=== PATIENT | male | born 1995 | race Caucasian/White ===

== ENCOUNTER 2018-02-09 18:23 | Emergency (ER) | payer OTHER ==
[~2018-02-09] VITALS: Ht 180.3 cm; Wt 79.4 kg
[2018-02-09 18:27] VITALS: TEMP 36.4; Ht 180.3 cm; Wt 79.4 kg
[2018-02-09] MEDS ORDERED: SODIUM CHLORIDE 0.9% 1000ML 1,000 ML IV STA (18:54)
[2018-02-09 19:10] VITALS: O2SAT 99
--- NOTE | 2018-02-09 19:26 | DIAGNOSTIC IMAGING REPORT ---
CHEST ONE VIEW PORTABLE CLINICAL HISTORY: CHEST PAIN dyspnea COMPARISON STUDY: No previous studies for comparison. FINDINGS: The bones soft tissues and hemidiaphragms are normal. The cardiomediastinal silhouette is normal. The lungs are clear. The pulmonary vasculature is normal. IMPRESSION: Negative chest. The above report was generated using voice recognition software. It may contain grammatical, syntax or spelling errors. Electronically signed by: Eugenio Fuchs M.D. 02/09/2018 7:24 PM Dictated Date/Time: 02/09/2018 7:24 PM
[2018-02-09 19:29] LABS: BASO % 0.4 %; BASO ABS # 0.02 K/uL (0-0.2); EOS % 0.9 %; EOS ABS # 0.05 K/uL (0-0.5); HEMATOCRIT 44.4 % (42-52); HEMOGLOBIN 15.4 g/dL (14.0-18.0); LYMPH % 29.8 %; LYMPH ABS # 1.65 K/uL (1.2-3.4); MEAN CELL VOLUME 84.4 fL (80-100); MEAN CORPUSCULAR HEMOGLOBIN 29.3 pg (25-34); MEAN CORPUSCULAR HGB CONC 34.7 g/dl (32-36); MEAN PLATELET VOLUME 10.1 fL (7.4-10.4); NEUT % 59.9 %; NEUT ABS # 3.31 K/uL (1.4-6.5); PLATELET COUNT 300 K/uL (130-400); RED CELL DISTRIBUTION WIDTH SD 39.4 fL (36.4-46.3); WHITE BLOOD COUNT 5.53 K/uL (4.8-10.8)
[2018-02-09 19:51] LABS: ALBUMIN 4.3 gm/dl (3.4-5.0); ALT/SGPT 42 U/L (12-78); AST/SGOT 38 U/L (15-37); BLOOD UREA NITROGEN 19 mg/dl (7-18); CALCIUM 8.5 mg/dl (8.5-10.1); CARBON DIOXIDE 28 mmol/L (21-32); CREATININE 0.99 mg/dl (0.60-1.40); GLUCOSE 95 mg/dl (70-99); LIPASE 229 U/L (73-393); SODIUM 136 mmol/L (136-145)
[2018-02-09 19:56] LABS: ALKALINE PHOSPHATASE 90 U/L (45-117); CKMB 3.2 ng/ml (0.5-3.6); TOTAL PROTEIN 7.6 gm/dl (6.4-8.2)
--- NOTE | 2018-02-09 20:00 | EMERGENCY ROOM VISIT NOTE ---
History Report prepared by Bruna: Summer Navarro Under the Supervision of: Dr. Elkin Hernandez M.D. First contact with patient: 18:43 Chief Complaint: ALLERGIC REACTION Stated Complaint: RASH, SOB, HALLUCINATIONS, ALLERGIC REACTION History of Present Illness The patient is a 22 year old male who presents to the Emergency Room with complaints of an episode of an allergic reaction occurring prior to arrival. The patient states that he had a huge test on Tuesday and was experiencing anxiety about it. He states that he was having difficulty sleeping. He reports that the symptoms lasted into Tuesday so he went to [facility]. He states that they put him on Celexa. The patient reports that he has been taking the medication for 3 days. He states that each time he has taken it within 30 minutes he loses focus, becomes short of breath, and gets a rash over his face, chest and arms. He reports that he also experiences ringing in his ears and hallucinations. He states that he came into the ED tonight because his hallucinations tonight had him thinking about suicide. The patient currently denies suicidal and homicidal ideations. He notes that he would come back to the ED if he ever had them. He denies ever having suicidal ideations in the past. He notes that he last took the medication an hour ago. The patient notes that he flushed the rest of the medication down the toilet. The patient denies taking anything for anxiety, ever being to [facility], the use of drugs, and the use of Adderall. He notes that he takes vitamin pills, amino acids, and protein for lifting for 3-4 years with no changes. The patient notes that he drinks occasionally. He states that he doesn't need his parents called and that he will talk to them. Source of History: patient Onset: prior to arrival Position: other (global) Quality: other (allergic reaction) Timing: other (episode) Associated Symptoms: + SOB, + rash Note: The patient complains of difficulty sleeping., hallucinations, and ringing in his ears. The patient denies suicidal and homicidal ideations. Review of Systems See HPI for pertinent positives & negatives. A total of 10 systems reviewed and were otherwise negative. Past Medical & Surgical Medical Problems: (1) No Known Active Medical Problems Family History No pertinent family history Social History Smoking Status: Never Smoker Alcohol Use: occasionally Marital Status: single Housing Status: lives with roommate Occupation Status: [employer] Current/Historical Medications Scheduled Amino Acids (Glutarade Essential Ga-1), 1 DOSE PO DAILY Multiple Vitamin (Multi Vitamin), 1 TAB PO DAILY Maud 3 Fatty Acids-Maud 6 Fa (Maud 3-6-9 Complex), 1 CAP PO DAILY Tazarotene (Tazorac), 1 APPLN TOP 1-2XDAILY [Sod Sulfacete-Sulfur], 1 APPLN TOP BID Scheduled PRN Fexofenadine-Pseudoephedrine (Sussy-D 24 Hour Allergy), 1 TAB PO DAILY PRN for Seasonal Allergies Hydroxyzine Pamoate (Vistaril), 50 MG PO Q6H PRN for Dizziness or Vertigo Allergies Coded Allergies: No Known Allergies (Unverified , 02/09/18) Physical Exam Vital Signs Date Time Temp Pulse Resp B/P (MAP) Pulse Ox O2 Delivery O2 Flow Rate FiO2 02/09/18 22:04 54 16 143/84 97 02/09/18 21:15 54 16 143/84 97 Room Air 02/09/18 19:25 60 02/09/18 19:10 99 Room Air 02/09/18 18:27 36.4 77 16 142/77 99 Room Air Physical Exam GENERAL: Awake, alert, well-appearing, in no acute distress HENT: Normocephalic, atraumatic. Oropharynx unremarkable. EYES: Normal conjunctiva. Sclera non-icteric. NECK: Supple. No nuchal rigidity. FROM. No JVD. RESPIRATORY: Clear to auscultation. CARDIAC: Regular rate, normal rhythm. Extremities warm and well perfused. Pulses equal. ABDOMEN: Soft, non-distended. No tenderness to palpation. No rebound or guarding. No masses. RECTAL: Deferred. MUSCULOSKELETAL: Chest examination reveals no tenderness. The back is symmetrical on inspection without obvious abnormality. There is no CVA tenderness to palpation. No joint edema. LOWER EXTREMITIES: Calves are equal size bilaterally and non-tender. No edema. No discoloration. NEURO: Normal sensorium. No sensory or motor deficits noted. SKIN: No rash or jaundice noted. PSYCH: Denies suicidal and homicidal ideations at this time. I offered numerous times to call his mother and he denies every one. Medical Decision & Procedures ER Provider Diagnostic Interpretation: Radiology results as stated below per my review and radiologist interpretation: CHEST ONE VIEW PORTABLE CLINICAL HISTORY: CHEST PAIN dyspnea COMPARISON STUDY: No previous studies for comparison. FINDINGS: The bones soft tissues and hemidiaphragms are normal. The cardiomediastinal silhouette is normal. The lungs are clear. The pulmonary vasculature is normal. IMPRESSION: Negative chest. The above report was generated using voice recognition software. It may contain grammatical, syntax or spelling errors. Electronically signed by: Eugenio Fuchs M.D. 02/09/2018 7:24 PM Dictated Date/Time: 02/09/2018 7:24 PM Laboratory Results 02/09/18 19:13 Red Blood Count 5.26, Mean Corpuscular Volume 84.4, Mean Corpuscular Hemoglobin 29.3, Mean Corpuscular Hemoglobin Concent 34.7, Mean Platelet Volume 10.1, Neutrophils (%) (Auto) 59.9, Lymphocytes (%) (Auto) 29.8, Monocytes (%) (Auto) 9.0, Eosinophils (%) (Auto) 0.9, Basophils (%) (Auto) 0.4, Neutrophils # (Auto) 3.31, Lymphocytes # (Auto) 1.65, Monocytes # (Auto) 0.50, Eosinophils # (Auto) 0.05, Basophils # (Auto) 0.02 02/09/18 19:13 Test 02/09/18 19:13 White Blood Count 5.53 K/uL (4.8-10.8) Red Blood Count 5.26 M/uL (4.7-6.1) Hemoglobin 15.4 g/dL (14.0-18.0) Hematocrit 44.4 % (42-52) Mean Corpuscular Volume 84.4 fL (80-100) Mean Corpuscular Hemoglobin 29.3 pg (25-34) Mean Corpuscular Hemoglobin Concent 34.7 g/dl (32-36) Platelet Count 300 K/uL (130-400) Mean Platelet Volume 10.1 fL (7.4-10.4) Neutrophils (%) (Auto) 59.9 % Lymphocytes (%) (Auto) 29.8 % Monocytes (%) (Auto) 9.0 % Eosinophils (%) (Auto) 0.9 % Basophils (%) (Auto) 0.4 % Neutrophils # (Auto) 3.31 K/uL (1.4-6.5) Lymphocytes # (Auto) 1.65 K/uL (1.2-3.4) Monocytes # (Auto) 0.50 K/uL (0.11-0.59) Eosinophils # (Auto) 0.05 K/uL (0-0.5) Basophils # (Auto) 0.02 K/uL (0-0.2) RDW Standard Deviation 39.4 fL (36.4-46.3) RDW Coefficient of Variation 13.0 % (11.5-14.5) Immature Granulocyte % (Auto) 0.0 % Immature Granulocyte # (Auto) 0.00 K/uL (0.00-0.02) Anion Gap 4.0 mmol/L (3-11) Est Creatinine Clear Calc Drug Dose 125.6 ml/min Estimated GFR () 125.7 Estimated GFR (Non- 108.4 BUN/Creatinine Ratio 19.3 (10-20) Calcium Level 8.5 mg/dl (8.5-10.1) Total Bilirubin 1.1 mg/dl (0.2-1) Direct Bilirubin 0.2 mg/dl (0-0.2) Aspartate Amino Transf (AST/SGOT) 38 U/L (15-37) Alanine Aminotransferase (ALT/SGPT) 42 U/L (12-78) Alkaline Phosphatase 90 U/L (45-117) Total Creatine Kinase 502 U/L (39-308) Creatine Kinase MB 3.2 ng/ml (0.5-3.6) Creatine Kinase MB Ratio 0.6 (0-3.0) Troponin I < 0.015 ng/ml (0-0.045) Total Protein 7.6 gm/dl (6.4-8.2) Albumin 4.3 gm/dl (3.4-5.0) Lipase 229 U/L (73-393) Labs reviewed by ED physician. Medications Administered Medications (Trade) Dose Ordered Sig/Valeria Route Start Time Stop Time Status Last Admin Dose Admin Sodium Chloride 1,000 ml @ 999 mls/hr Q1H1M STAT IV 02/09/18 18:54 02/09/18 19:54 DC 02/09/18 19:21 999 MLS/HR Hydroxyzine HCl (Vistaril Tab) 25 mg NOW STAT PO 02/09/18 21:38 02/09/18 21:39 DC 02/09/18 21:44 25 MG ECG Per My Interpretation Indication: toxicologic Rate (beats per minute): 53 Rhythm: sinus bradycardia Findings: other (normal axis, no ST elevation or depression) ED Course 1844: Past medical records reviewed. The patient was evaluated in room A6. A complete history and physical examination was performed. 1853: Ordered NSS 1000 ml @ 999 mls/hr IV. 1937: I reevaluated the patient and spoke to his father with him on speaker phone. 2128: Upon reexamination the patient is resting comfortably. He decided he would like to try Vistaril here. I reiterated that it doesn't guarantee no side effects with his alcohol use and other medications. I recommended not consuming any alcohol until his anxiety is under control. I strongly recommended to him to see [facility]. I discussed results and treatment plan with the patient. He verbalizes agreement and understanding. The patient is ready for discharge. 2137: Ordered Vistaril Tab 25 mg PO. Medical Decision Etiologies such as cardiac ischemia, aortic dissection, pulmonary embolism, pneumonia, pneumothorax, musculoskeletal, infections, pericarditis, myocarditis , esophageal rupture, gastrointestinal, as well as others were entertained. This is a 22-year-old male who presents the emergency department complaining of adverse reaction to Celexa. The patient is only 3 taken 3 doses of the drug and has ceased taking it. He reports a flushing-like reaction. He denies being suicidal or homicidal. He was questioned at length about this. I also offered to discuss the patient's case with his parents however he initially refused however we did discuss the patient's medication reaction with his father later on in the visit. I offered to place the patient on Vistaril and strongly recommended he cease from alcohol as well as his supplements until he follows up with and [facility]. I do feel that the patient is well enough to be discharged home for follow-up with his primary care physician. Patient was in agreement with the treatment plan. Medication Reconcilliation Current Medication List: was personally reviewed by me Blood Pressure Screening Patient's blood pressure: Elevated blood pressure Blood pressure disposition: Elevated BP felt to be situational Impression Primary Impression: Adverse reaction to antidepressant drug Scribe Attestation The scribe's documentation has been prepared under my direction and personally reviewed by me in its entirety. I confirm that the note above accurately reflects all work, treatment, procedures, and medical decision making performed by me. Departure Information Dispostion Home / Self-Care Prescriptions Hydroxyzine Pamoate (VISTARIL) 50 Mg Cap 50 MG PO Q6H Y for Dizziness or Vertigo for 7 Days, #28 CAP PRN ITCH Prov: Elkin Hernandez MD 02/09/18 Referrals No Doctor, Assigned (PCP) Forms HOME CARE DOCUMENTATION FORM, IMPORTANT VISIT INFORMATION Patient Instructions My [facility] Additional Instructions NEED follow up with [facility]/ [facility] STop Taking Celexa Hold off on alcohol/ supplements until your anxiety is under control You have been examined and treated today on an emergency basis only. This is not a substitute for, or an effort to provide, complete comprehensive medical care. It is impossible to recognize and treat all injuries or illnesses in a single emergency department visit. It is therefore important that you follow up closely with [facility]. Call as soon as possible for an appointment. Thank you for your time and consideration. I look forward to speaking with you again soon. Please don't hesitate to call us if you have any questions. Problem Qualifiers Primary Impression: Adverse reaction to antidepressant drug Encounter type: initial encounter Qualified Codes: T43.205A - Adverse effect of unspecified antidepressants, initial encounter
[2018-02-09] MEDS ORDERED: MULT-1027 PO (20:40)
[2018-02-09] MEDS ORDERED: [UNRECOGNIZED DRUG - OTHER] TOP (20:40)
[2018-02-09] MEDS ORDERED: [UNRECOGNIZED DRUG - CODE] TOP (20:40)
[2018-02-09] MEDS ORDERED: OMEG1CAP71 PO (20:40)
[2018-02-09] MEDS ORDERED: FEXO1TAB58 PO (20:40)
[2018-02-09] MEDS ORDERED: [UNRECOGNIZED DRUG - CODE] PO (20:40)
[2018-02-09] MEDS ORDERED: hydrOXYzine HCL 25 MG TAB PO STA (21:38)
[2018-02-09] MEDS ORDERED: HYDR50CA2 PO (21:42)
[2018-02-09 22:04] VITALS: BP 143/84; PULSE 54; O2SAT 97
== END 2018-02-09 22:05 | disposition home or self-care (01) ==
LOC: C.EDB 18:25 → C.EDA 22:05
DX: T43.225A Adverse effect of selective serotonin reuptake inhibitors, initial encounter (principal); R03.0 Elevated blood-pressure reading, without diagnosis of hypertension